=== PATIENT | male | born 1975 | race Caucasian/White ===

== ENCOUNTER 2017-04-15 11:31 | Emergency (ER) | payer MEDICAID ==
[~2017-04-15] VITALS: Ht 185.4 cm; Wt 97.2 kg
[2017-04-15 11:52] VITALS: BP 124/78
== END 2017-04-15 13:03 | disposition home or self-care (01) ==
LOC: ED 12:13
DX: J00 Acute nasopharyngitis [common cold] (principal); R05 Cough; J01.90 Acute sinusitis, unspecified; J45.909 Unspecified asthma, uncomplicated; F17.200 Nicotine dependence, unspecified, uncomplicated; M19.90 Unspecified osteoarthritis, unspecified site
CPT/HCPCS: 71010; 99283

== ENCOUNTER 2018-01-30 08:46 | Emergency (ER) | payer MEDICAID ==
[~2018-01-30] VITALS: Ht 188 cm; Wt 99.0 kg
[2018-01-30] MEDS ORDERED: OXYcodone/APAP 5/325MG TABLET PO ONE (10:30)
[2018-01-30] MEDS ORDERED: OXYcodone/APAP 5/325MG TABLET ONE (10:36)
[2018-01-30 11:18] VITALS: BP 118/75
== END 2018-01-30 11:20 | disposition home or self-care (01) ==
LOC: ED 11:10
DX: S43.422A Sprain of left rotator cuff capsule, initial encounter (principal); X58.XXXA Exposure to other specified factors, initial encounter; Y93.89 Activity, other specified; Y99.8 Other external cause status; Y92.89 Other specified places as the place of occurrence of the external cause
CPT/HCPCS: 93005; 99284